=== PATIENT | male | born 1995 | race Hispanic/Latino ===

== ENCOUNTER 2018-06-28 23:44 | Emergency (ER) | payer OTHER ==
[2018-06-28] MEDS ORDERED: ACETAMINOPHEN EXTRA STRENGTH 500 MG TABLET ONE (23:53)
[2018-06-29 00:16] LABS: RAPID GROUP A STREP NEGATIVE (NEGATIVE)
== END 2018-06-29 00:36 | disposition home or self-care (01) ==
LOC: EDH 23:44
DX: J09.X2 Influenza due to identified novel influenza A virus with other respiratory manifestations (principal)
CPT/HCPCS: 87804; 87880